=== PATIENT | female | born 1940 ===

== ENCOUNTER → 2018-06-10 | Outpatient (CLI) | payer MEDICARE ==
--- NOTE | 2018-06-10 13:22 | RADIOLOGY IMAGING REPORT ---
[place]AC[place] [facility] [place]IENT NAME: Shae Copeland : 1940 MR: [id number] V: [id number] EXAM DATE: ORDERING PHYSICIAN: KELVIN FORD TECHNOLOGIST: Location: [facility] Patient: Shae Copeland : 1940 Visit/Account:[id number] Date of Sevice: 06/10/2018 Exam type: CHEST PA LAT History: Cough, acute bronchitis Comparison: None. Findings: Lungs are hyperinflated but otherwise clear. There is no focal infiltrate, pleural effusion or pneum othorax. Heart size is slightly prominent. The osseous structures demonstrate a scoliosis with degenerative changes. IMPRESSION: 1. No acute cardiopulmonary disease. Report Dictated By: Joe Muñoz MD at 06/10/2018 1:17 PM Report E-Signed By: Joe Muñoz MD at 06/10/2018 1:18 PM WSN:[email or web address]
== END ==
LOC: RAD 11:55
PROVIDERS: ATTEND Family Medicine
DX: J20.9 Acute bronchitis, unspecified (principal)
CPT/HCPCS: 71046